=== PATIENT | male | born 2000 | race African-American/Black ===

== ENCOUNTER 2023-02-26 20:21 | Emergency (ER) | payer SELFPAY ==
[~2023-02-26] VITALS: Ht 175.3 cm; Wt 50.5 kg
[2023-02-26 22:38] VITALS: BP 115/80; PULSE 73; TEMP 98.4
[2023-02-26] MEDS ORDERED: INSU3INS3 SQ (22:42)
[2023-02-26] MEDS ORDERED: INSU100I15 SQ (22:42)
[2023-02-26 22:54] LABS: BASOPHILS % (AUTO) 0.9 % (0.0-2.0); HEMATOCRIT 39.4 % (41-53); LYMPHOCYTES # (AUTO) 2.3 K/uL (1.0-4.8); MEAN CORPUSCULAR HEMOGLOBIN 30.1 pg (26.0-34.0); MEAN CORPUSCULAR HGB CONC 32.8 G/dL (31.0-37.0); MEAN CORPUSCULAR VOLUME 92 fL (80-100); MONOCYTES # (AUTO) 0.7 K/uL (0.1-1.0); MONOCYTES % (AUTO) 9.5 % (2.0-9.0); NEUTROPHILS # (AUTO) 4.1 K/uL (1.8-7.7); NEUTROPHILS % (AUTO) 56.6 % (40.0-70.0); PLATELET COUNT (AUTO) 409 K/uL (150-450); RED BLOOD CELL COUNT(AUTO) 4.31 MIL/uL (4.50-5.90)
[2023-02-26 23:08] LABS: ALANINE AMINOTRANSFERASE 20 U/L (12-78); ALBUMIN 3.6 g/dL (3.4-5.0); ALKALINE PHOSPHATASE 118 U/L (46-116); ANION GAP 9 mmol/L (8-16); ASPARTATE AMINOTRANSFERASE 14 U/L (15-37); BILIRUBIN,TOTAL 0.4 mg/dL (0.1-1.0); CALCIUM, TOTAL 9.6 mg/dL (8.8-10.5); CARBON DIOXIDE 29 mmol/L (22-29); CHLORIDE 98 mmol/L (98-107); CREATININE 1.09 mg/dL (0.60-1.30); GLOMERULAR FILTR. RATE CALC > 60 mL/min (>60); POTASSIUM 4.2 mmol/L (3.5-5.1); SODIUM SERUM 136 mmol/L (136-145); TOTAL PROTEIN, SERUM 8.1 g/dL (6.4-8.2)
[2023-02-26 23:11] LABS: GLUCOMETER DEV NAME(LOC) ER.6
[2023-02-26 23:15] LABS: GLUCOSE,RANDOM 559 mg/dL (70-110)
[2023-02-26] MEDS ORDERED: INSULIN REGULAR, HUMAN 100 UNITS/ML IVP ONE (23:15)
[2023-02-26] MEDS ORDERED: SODIUM CHLORIDE 0.9% 1,000 ML IV ONE (23:15)
[2023-02-27 01:56] LABS: GLUCOMETER DEV NAME(LOC) ER.6
[2023-02-27] MEDS ORDERED: INSULIN REGULAR, HUMAN 100 UNITS/ML IVP ONE (02:00)
[2023-02-27 03:02] VITALS: RESP 16
== END 2023-02-27 03:04 | disposition home or self-care (01) ==
LOC: EMS 20:25
DX: F32.A Depression, unspecified (principal); E11.65 Type 2 diabetes mellitus with hyperglycemia
CPT/HCPCS: 99285; 96361; 80053; 82962; 85025; 96374; 96375; G0480; J1815 ×2; J7030